=== PATIENT | female | born 1970 ===

== ENCOUNTER 2019-06-22 08:34 | Emergency (ER) | payer BC ==
--- NOTE | 2019-06-22 09:19 | UC ---
FLU HPI - HPI Summary HPI Summary: 49 year old female with no PMH presents with 24 hours of throat pain, mild cough worse with lying down, tactile fever, body aches, fatigue, headache- posterior "my teeth ache", and mild nausea. no neck stiffness, no vomiting. mild R ear pain. sick with flu last week. in town helping son w his new job, from [place]. on hormone replacement but no SOB. - History of Current Complaint Chief Complaint: UCGeneralIllness Stated Complaint: THROAT PAIN Time Seen by Provider: 06/22/19 08:52 Hx Obtained From: Patient ?: No Onset/Duration: Sudden Onset, Lasting Hours Severity Currently: Severe Severity Initially: Severe Pain Intensity: 9 Pain Scale Used: 0-10 Numeric Associated Signs & Symptoms: Positive: Fever - tactile, Myalgia, Cough, Sore Throat, Nasal Congestion, Headache. Negative: Vomiting, Diarrhea Related Hx: Possible Flu/Infectious Exposure - last week - Allergy/Home Medications Allergies/Adverse Reactions: Allergies Allergy/AdvReac Type Severity Reaction Status Date / Time clindamycin [From Cleocin] Allergy Rash Verified 06/22/19 08:44 Tetracyclines Allergy Rash Verified 06/22/19 08:44 amoxicillin [From Augmentin] AdvReac Vomiting Verified 06/22/19 08:44 clavulanic acid AdvReac Vomiting Verified 06/22/19 08:44 [From Augmentin] Home Medications: Home Medications Bupropion XL* [Wellbutrin XL *] 150 mg PO DAILY 06/22/19 [History Confirmed 06/11] Calcium Carbonate/Vitamin D3 [Calcium 600 + Vit D Tablet] 1 each PO DAILY [History Confirmed 06/22/19] Estradiol [Imvexxy] 4 mcg VG WEEKLY 06/22/19 [History Confirmed 06/22/19] Estradiol/Progesterone [Bijuva 1 mg-100 mg Capsule] 1 each PO DAILY 06/22/19 [ History Confirmed 06/22/19] L.acidoph,Paracasei, B.lactis [Probiotic] 1 each PO DAILY 06/22/19 [History Confirmed 06/22/19] Oseltamivir Phosphate [Tamiflu] 75 mg PO BID #10 capsule 06/22/19 [Rx] Zoledronic Acid/Mannitol-Water [Reclast 5 mg/100 ml Solution] 5 mg IV ONCE 06/21 [History Confirmed 06/22/19] PMH/Surg Hx/FS Hx/Imm Hx Previously Healthy: Yes - Surgical History Surgical History: Yes Surgery Procedure, Year, and Place: breast implants. deviated septum repair - Family History Known Family History: Positive: Non-Contributory - Social History Lives: With Family Alcohol Use: Occasionally Substance Use Type: None Smoking Status (MU): Never Smoked Tobacco Review of Systems All Other Systems Reviewed And Are Negative: Yes Constitutional: Positive: Fever, Chills, Fatigue ENT: Positive: Sore Throat, Ear Ache, Sinus Congestion, Sinus Pain/Tenderness Respiratory: Positive: Cough Cardiovascular: Positive: Negative Gastrointestinal: Positive: Nausea Genitourinary: Positive: Negative Motor: Positive: Negative Musculoskeletal: Positive: Myalgia Neurological/Mental Status: Positive: Headache Psychological: Positive: Negative Is Patient Immunocompromised?: No Physical Exam Triage Information Reviewed: Yes Appearance: No Pain Distress, Well-Nourished, Ill-Appearing - mild Vital Signs: Initial Vital Signs Temp 99.9 F 06/22/19 08:49 Pulse 76 06/22/19 08:49 Resp 16 06/22/19 08:49 BP 101/62 06/22/19 08:49 Pulse Ox 100 06/22/19 08:49 Vital Signs Reviewed: Yes Eyes: Positive: Conjunctiva Clear ENT: Positive: Hearing grossly normal, Pharynx normal, TMs normal, Uvula midline. Negative: Pharyngeal erythema, TM bulging, TM dull, TM red, Tonsillar swelling, Tonsillar exudate, Sinus tenderness Neck: Positive: Supple, No Lymphadenopathy, Tenderness @ - occiput region b/l. no neck stiffness, full ROM without difficulty Respiratory: Positive: Chest non-tender, Lungs clear, Normal breath sounds, No respiratory distress, No accessory muscle use. Negative: Respiratory distress, Decreased breath sounds, Crackles, Rhonchi, Stridor, Wheezing Cardiovascular: Positive: RRR, No Murmur Psychological Exam: Normal Psychological: Positive: Normal Response To Family Skin: Negative: Rashes Flu Course/Dx - Course Course Of Treatment: - Increase fluid intake - Humidifier at night to help with coughing - Good Hygiene, hand washing to prevent spread - Over the counter medications for symptoms - Motrin/ Tylenol as needed for pain, fever, over the counter medications for symptoms - Tamiflu as directed - Differential Dx/Diagnosis Differential Diagnosis/HQI/PQRI: Influenza, RSV, Upper Respiratory Infection Provider Diagnosis: Influenza Discharge ED - Sign-Out/Discharge Documenting (check all that apply): Patient Departure All imaging exams completed and their final reports reviewed: No Studies - Discharge Plan Condition: Fair Disposition: HOME Prescriptions: Oseltamivir Phosphate [Tamiflu] 75 mg PO BID #10 capsule Patient Education Materials: Influenza (ED) Referrals: No Primary Care Phys,NOPCP [Primary Care Provider] - Additional Instructions: - Increase fluid intake - Humidifier at night to help with coughing - Good Hygiene, hand washing to prevent spread - Over the counter medications for symptoms - Motrin/ Tylenol as needed for pain, fever, over the counter medications for symptoms - Tamiflu as directed - Billing Disposition and Condition Condition: FAIR Disposition: Home
[2019-06-22 09:22] LABS: Influenza A Molecular Negative (Negative); Influenza B Molecular Negative (Negative)
[2019-06-22] MEDS ORDERED: Ibuprofen TAB* 600 MG PO ONE (09:23)
== END 2019-06-22 09:33 | disposition home or self-care (01) ==
LOC: UCEAST 08:34
DX: J11.1 Influenza due to unidentified influenza virus with other respiratory manifestations (principal); Z88.1 Allergy status to other antibiotic agents; Z88.0 Allergy status to penicillin
CPT/HCPCS: 99202; A9270-GY; G0463